=== PATIENT | male | born 1945 | race African-American/Black ===

== ENCOUNTER 2018-05-03 15:34 | Inpatient (IN) | payer MEDICARE ==
[~2018-05-03] VITALS: Ht 182.9 cm; Wt 76.4 kg
[~2018-05-03 15:34] MED LIST: IPRA3AMP29 IH; LEVO750T31 PO
[2018-05-03] MEDS ORDERED: fentaNYL PF VIAL 100 MCG/2 ML VIAL IV ONE (16:00)
[2018-05-03] MEDS ORDERED: IV NORMAL SALINE 1000ML BAG 1,000 ML IV ONE (16:00)
[2018-05-03] MEDS ORDERED: CONTRAST GIVEN. MC PRN (16:15)
[2018-05-03] MEDS ORDERED: IOHEXOL 300 MG/ML 100ML VIAL. IV ONE (16:15)
[2018-05-03 16:34] LABS: BASO % 0 % (0-3); EOS # 0.2 x10^3/uL (0.0-0.7); EOS % 2 % (0-3); HEMATOCRIT 49.5 % (39.0-53.0); HEMOGLOBIN 16.6 g/dL (13.0-17.5); LYMPH # 1.4 x10^3/uL (1.0-4.8); LYMPH % 19 % (24-48); MEAN CORPUSCULAR HEMOGLOBIN 33 pg (25-35); MEAN CORPUSCULAR HGB CONC 34 g/dL (31-37); MEAN CORPUSCULAR VOLUME 98 fL (79-100); MONO # 0.5 x10^3/uL (0.0-1.1); MONO % 6 % (0-9); NEUT # 5.3 x10^3uL (1.8-7.7); NEUT % 72 % (31-73); PLATELET COUNT 272 x10^3/uL (140-400); RED BLOOD COUNT 5.06 x10^6/uL (4.30-5.70); RED CELL DISTRIBUTION WIDTH 13.1 % (11.5-14.5); WHITE BLOOD COUNT 7.3 x10^3/uL (4.0-11.0)
[2018-05-03 16:47] LABS: CALCIUM 10.2 mg/dL (8.5-10.1); CREATININE 1.1 mg/dL (0.7-1.3); GFR 79.4; POTASSIUM 4.2 mmol/L (3.5-5.1)
[2018-05-03 16:53] LABS: ALBUMIN 3.8 g/dL (3.4-5.0); ALBUMIN/GLOBULIN RATIO 0.7 (1.0-1.7); TOTAL BILIRUBIN 0.5 mg/dL (0.2-1.0)
[2018-05-03] MEDS ORDERED: ONDANSETRON PF 4 MG/2 ML VIAL. ONE (16:55)
[2018-05-03] MEDS ORDERED: ONDANSETRON PF 4 MG/2 ML VIAL. IV ONE ×2 (17:00→19:00)
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
[2018-05-03] MEDS ORDERED: fentaNYL PF VIAL 100 MCG/2 ML VIAL IV PRN (19:00)
[2018-05-03] MEDS ORDERED: ONDANSETRON PF 4 MG/2 ML VIAL. IV PRN (19:00)
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
[2018-05-03] MEDS ORDERED: IV NORMAL SALINE 1000ML BAG 1,000 ML IV SCH (19:15)
[2018-05-03 19:53] VITALS: BP 157/91
[2018-05-03] MEDS: IPRATRPIUM/ALBUTEROL 0.5/2.5MG 3 ML NEBU. NEB SCH (21:08)
[2018-05-03] MEDS: IV NORMAL SALINE 1000ML BAG 1,000 ML IV SCH (21:33)
[2018-05-03 23:00] VITALS: BP 149/67
[2018-05-04] MEDS ORDERED: SIMETHICONE 80 MG TAB.CHEW PO SCH
[2018-05-04 03:00] VITALS: BP 122/73
[2018-05-04 05:29] LABS: BASO % 0 % (0-3); EOS % 0 % (0-3); HEMATOCRIT 44.4 % (39.0-53.0); HEMOGLOBIN 14.8 g/dL (13.0-17.5); LYMPH # 0.8 x10^3/uL (1.0-4.8); LYMPH % 11 % (24-48); MEAN CORPUSCULAR HEMOGLOBIN 32 pg (25-35); MEAN CORPUSCULAR HGB CONC 33 g/dL (31-37); MEAN CORPUSCULAR VOLUME 97 fL (79-100); MONO # 0.6 x10^3/uL (0.0-1.1); MONO % 8 % (0-9); NEUT # 6.1 x10^3uL (1.8-7.7); NEUT % 81 % (31-73); PLATELET COUNT 240 x10^3/uL (140-400); RED BLOOD COUNT 4.57 x10^6/uL (4.30-5.70); RED CELL DISTRIBUTION WIDTH 12.5 % (11.5-14.5); WHITE BLOOD COUNT 7.5 x10^3/uL (4.0-11.0)
[2018-05-04 05:48] LABS: CALCIUM 9.2 mg/dL (8.5-10.1); CREATININE 1.1 mg/dL (0.7-1.3); GFR 79.4
[2018-05-04] MEDS: IPRATRPIUM/ALBUTEROL 0.5/2.5MG 3 ML NEBU. NEB SCH ×4 (06:01→19:35)
[2018-05-04 07:00] VITALS: BP 103/65
[2018-05-04] MEDS: IV NORMAL SALINE 1000ML BAG 1,000 ML IV SCH ×2 (09:00→22:24)
[2018-05-04 11:00] VITALS: BP 121/55
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
--- NOTE | 2018-05-04 11:35 | PDOC2 ---
CONSULT Date of Consult Date of Consult DATE: 05/04/18 TIME: 11:32 Reason for Consult Reason for Consult: SBO Past Medical History Cardiovascular: HTN Pulmonary: COPD Endocrine: Diabetes Past Surgical History Past Surgical History: Cholecystectomy, Colectomy, Other (colostomy, reversal ) Family History Family History: Other (noncontributory to current illness ) Social History ALCOHOL: none Drugs: None Lives: Alone Current Problem List Problem List Problems Medical Problems: (1) SBO (small bowel obstruction) Status: Acute Current Medications Current Medications Current Medications Fentanyl Citrate (Fentanyl 2ml Vial) 25 mcg 1X ONCE IV Last administered on at 17:13; Start 05/03/18 at 16:00; Stop 05/03/18 at 16:01; Status DC Sodium Chloride 1,000 ml @ 1,000 mls/hr 1X ONCE IV Last administered on at 17:12; Start 05/03/18 at 16:00; Stop 05/03/18 at 16:59; Status DC Iohexol (Omnipaque 300 Mg/ml) 75 ml 1X ONCE IV Last administered on 05/03/18at 16:15; Start 05/03/18 at 16:15; Stop 05/03/18 at 16:16; Status DC Info (CONTRAST GIVEN -- Rx MONITORING) 1 each PRN DAILY PRN MC SEE COMMENTS; Start 05/03/18 at 16:15; Stop 05/05/18 at 16:14 Ondansetron HCl (Zofran) 4 mg STK-MED ONCE .ROUTE ; Start 05/03/18 at 16:55; Stop 05/03/18 at 16:57; Status DC Ondansetron HCl (Zofran) 4 mg 1X ONCE IV ; Start 05/03/18 at 17:00; Stop at 17:40; Status DC Ondansetron HCl (Zofran) 4 mg 1X ONCE IV Last administered on 05/03/18at 19:14 ; Start 05/03/18 at 19:00; Stop 05/03/18 at 19:01; Status DC Ondansetron HCl (Zofran) 4 mg PRN Q8HRS PRN IV NAUSEA/VOMITING; Start 05/03/18 at 19:00; Stop 05/04/18 at 18:59 Fentanyl Citrate (Fentanyl 2ml Vial) 25 mcg PRN Q2HR PRN IV PAIN; Start at 19:00; Stop 05/04/18 at 18:59 Sodium Chloride 1,000 ml @ 100 mls/hr Q10H IV ; Start 05/03/18 at 19:15 Albuterol/ Ipratropium (Duoneb) 3 ml RTQID NEB Last administered on 05/04/18at 06:01; Start 05/03/18 at 21:00 Sodium Chloride 1,000 ml @ 75 mls/hr [id number] IV Last administered on at 09:00; Start 05/03/18 at 21:00 Simethicone (Gas-X) 80 mg Q4HRS PO ; Start 05/04/18 at 00:00; Status Cancel Active Scripts Active Reported Duoneb 0.5-3(2.5) Mg/3 Ml (Albuterol/Ipratropium) 3 Ml Ampul.neb 3 Ml IH QID Allergies Allergies: Coded Allergies: Penicillins (Verified Allergy, Intermediate, Hives, 10/13/15) Vitals VITALS Vital Signs Date Time Temp Pulse Resp B/P (MAP) Pulse Ox O2 Delivery O2 Flow Rate FiO2 05/04/18 11:00 98.6 86 18 121/55 (77) 96 Room Air 98.6 Labs Labs Laboratory Tests Test 05/03/18 16:25 05/04/18 05:00 White Blood Count 7.3 x10^3/uL (4.0-11.0) 7.5 x10^3/uL (4.0-11.0) Red Blood Count 5.06 x10^6/uL (4.30-5.70) 4.57 x10^6/uL (4.30-5.70) Hemoglobin 16.6 g/dL (13.0-17.5) 14.8 g/dL (13.0-17.5) Hematocrit 49.5 % (39.0-53.0) 44.4 % (39.0-53.0) Mean Corpuscular Volume 98 fL (79-100) 97 fL (79-100) Mean Corpuscular Hemoglobin 33 pg (25-35) 32 pg (25-35) Mean Corpuscular Hemoglobin Concent 34 g/dL (31-37) 33 g/dL (31-37) Red Cell Distribution Width 13.1 % (11.5-14.5) 12.5 % (11.5-14.5) Platelet Count 272 x10^3/uL (140-400) 240 x10^3/uL (140-400) Neutrophils (%) (Auto) 72 % (31-73) 81 % (31-73) Lymphocytes (%) (Auto) 19 % (24-48) 11 % (24-48) Monocytes (%) (Auto) 6 % (0-9) 8 % (0-9) Eosinophils (%) (Auto) 2 % (0-3) 0 % (0-3) Basophils (%) (Auto) 0 % (0-3) 0 % (0-3) Neutrophils # (Auto) 5.3 x10^3uL (1.8-7.7) 6.1 x10^3uL (1.8-7.7) Lymphocytes # (Auto) 1.4 x10^3/uL (1.0-4.8) 0.8 x10^3/uL (1.0-4.8) Monocytes # (Auto) 0.5 x10^3/uL (0.0-1.1) 0.6 x10^3/uL (0.0-1.1) Eosinophils # (Auto) 0.2 x10^3/uL (0.0-0.7) 0.0 x10^3/uL (0.0-0.7) Basophils # (Auto) 0.0 x10^3/uL (0.0-0.2) 0.0 x10^3/uL (0.0-0.2) Sodium Level 139 mmol/L (136-145) 141 mmol/L (136-145) Potassium Level 4.2 mmol/L (3.5-5.1) 4.0 mmol/L (3.5-5.1) Chloride Level 101 mmol/L (98-107) 105 mmol/L (98-107) Carbon Dioxide Level 29 mmol/L (21-32) 27 mmol/L (21-32) Anion Gap 9 (6-14) 9 (6-14) Blood Urea Nitrogen 14 mg/dL (8-26) 18 mg/dL (8-26) Creatinine 1.1 mg/dL (0.7-1.3) 1.1 mg/dL (0.7-1.3) Estimated GFR (Cockcroft-Gault) 79.4 79.4 BUN/Creatinine Ratio 13 (6-20) Glucose Level 175 mg/dL (70-99) 144 mg/dL (70-99) Calcium Level 10.2 mg/dL (8.5-10.1) 9.2 mg/dL (8.5-10.1) Magnesium Level 2.0 mg/dL (1.8-2.4) Total Bilirubin 0.5 mg/dL (0.2-1.0) Aspartate Amino Transf (AST/SGOT) 30 U/L (15-37) Alanine Aminotransferase (ALT/SGPT) 23 U/L (16-63) Alkaline Phosphatase 88 U/L (46-116) Total Protein 9.0 g/dL (6.4-8.2) Albumin 3.8 g/dL (3.4-5.0) Albumin/Globulin Ratio 0.7 (1.0-1.7) Lipase 82 U/L (73-393) Laboratory Tests Test 05/03/18 16:25 05/04/18 05:00 White Blood Count 7.3 x10^3/uL (4.0-11.0) 7.5 x10^3/uL (4.0-11.0) Red Blood Count 5.06 x10^6/uL (4.30-5.70) 4.57 x10^6/uL (4.30-5.70) Hemoglobin 16.6 g/dL (13.0-17.5) 14.8 g/dL (13.0-17.5) Hematocrit 49.5 % (39.0-53.0) 44.4 % (39.0-53.0) Mean Corpuscular Volume 98 fL (79-100) 97 fL (79-100) Mean Corpuscular Hemoglobin 33 pg (25-35) 32 pg (25-35) Mean Corpuscular Hemoglobin Concent 34 g/dL (31-37) 33 g/dL (31-37) Red Cell Distribution Width 13.1 % (11.5-14.5) 12.5 % (11.5-14.5) Platelet Count 272 x10^3/uL (140-400) 240 x10^3/uL (140-400) Neutrophils (%) (Auto) 72 % (31-73) 81 % (31-73) Lymphocytes (%) (Auto) 19 % (24-48) 11 % (24-48) Monocytes (%) (Auto) 6 % (0-9) 8 % (0-9) Eosinophils (%) (Auto) 2 % (0-3) 0 % (0-3) Basophils (%) (Auto) 0 % (0-3) 0 % (0-3) Neutrophils # (Auto) 5.3 x10^3uL (1.8-7.7) 6.1 x10^3uL (1.8-7.7) Lymphocytes # (Auto) 1.4 x10^3/uL (1.0-4.8) 0.8 x10^3/uL (1.0-4.8) Monocytes # (Auto) 0.5 x10^3/uL (0.0-1.1) 0.6 x10^3/uL (0.0-1.1) Eosinophils # (Auto) 0.2 x10^3/uL (0.0-0.7) 0.0 x10^3/uL (0.0-0.7) Basophils # (Auto) 0.0 x10^3/uL (0.0-0.2) 0.0 x10^3/uL (0.0-0.2) Sodium Level 139 mmol/L (136-145) 141 mmol/L (136-145) Potassium Level 4.2 mmol/L (3.5-5.1) 4.0 mmol/L (3.5-5.1) Chloride Level 101 mmol/L (98-107) 105 mmol/L (98-107) Carbon Dioxide Level 29 mmol/L (21-32) 27 mmol/L (21-32) Anion Gap 9 (6-14) 9 (6-14) Blood Urea Nitrogen 14 mg/dL (8-26) 18 mg/dL (8-26) Creatinine 1.1 mg/dL (0.7-1.3) 1.1 mg/dL (0.7-1.3) Estimated GFR (Cockcroft-Gault) 79.4 79.4 BUN/Creatinine Ratio 13 (6-20) Glucose Level 175 mg/dL (70-99) 144 mg/dL (70-99) Calcium Level 10.2 mg/dL (8.5-10.1) 9.2 mg/dL (8.5-10.1) Magnesium Level 2.0 mg/dL (1.8-2.4) Total Bilirubin 0.5 mg/dL (0.2-1.0) Aspartate Amino Transf (AST/SGOT) 30 U/L (15-37) Alanine Aminotransferase (ALT/SGPT) 23 U/L (16-63) Alkaline Phosphatase 88 U/L (46-116) Total Protein 9.0 g/dL (6.4-8.2) Albumin 3.8 g/dL (3.4-5.0) Albumin/Globulin Ratio 0.7 (1.0-1.7) Lipase 82 U/L (73-393) Assessment/Plan Assessment/Plan SBo- with history of adhesions and prior surgery, adhesive disease leads differential. Malignancy/internal hernia, and/or volvulus possible as well. Plan gut rest/ng decompression serial kubs possible surgery consult and/or sb series if refractory to medical therapy Full note dictated EVELIN DIAZ MD May 04, 2018 11:35
[2018-05-04] MEDS ORDERED: IPRATRPIUM/ALBUTEROL 0.5/2.5MG 3 ML NEBU. IH SCH (13:00)
--- NOTE | 2018-05-04 14:42 | RAD ---
EXAM: ABDOMEN 2 VIEWS WITH PA CHEST History: Small bowel obstruction COMPARISON: 10/12/2015. FINDINGS: Feeding tube is identified in the abdomen with the tip projecting in the level of the distal stomach or proximal duodenum. There is no subdiaphragmatic free air. There is no bowel dilatation or evidence of obstruction. IMPRESSION: No acute abnormality identified. Electronically signed by: Jorge Oshea MD (05/04/2018 2:38 PM) [facility]
[2018-05-04 15:00] VITALS: BP 120/60
[2018-05-04 19:00] VITALS: BP 135/69
[2018-05-04 23:00] VITALS: BP 126/74
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
[2018-05-05 03:00] VITALS: BP 103/58
[2018-05-05 07:00] VITALS: BP 123/78
[2018-05-05] MEDS: IPRATRPIUM/ALBUTEROL 0.5/2.5MG 3 ML NEBU. NEB SCH ×4 (07:33→19:12)
--- NOTE | 2018-05-05 09:57 | RAD ---
Single view of the abdomen 05/05/2018 INDICATION: Small bowel obstruction. COMPARISON STUDY: Abdominal Series , yesterday. Discussion: There is an enteric tube with tip likely in the distal stomach versus proximal most duodenum. No gross pneumoperitoneum is identified below exam is limited for this purpose. The bowel gas pattern is nonspecific, without evidence of obstruction. Mild paucity of central bowel gas is seen. Surgical clips noted in the right upper abdomen. Sutures noted in the midline. Degenerative changes of the spine are seen. Hypertrophic, likely post traumatic changes of the pubic symphysis are seen. An acute change from prior exam is not identified. IMPRESSION: No radiographic evidence of acute intra-abdominal abnormality or acute change from comparison study Electronically signed by: Alexandro Sena MD (05/05/2018 9:54 AM) [id number]
[2018-05-05 11:00] VITALS: BP 131/74
--- NOTE | 2018-05-05 11:10 | PDOC ---
Subjective: Subjective: Has been walking the halls all morning. Denies abd pain, denies nausea. NGT uncomfortable - says clamped this morning. A little annoyed - says he has "clear drainage from COPD." Denies flatus. Objective: Objective: 1600 out of NG per I&O Vital Signs: Vital Signs Date Time Temp Pulse Resp B/P (MAP) Pulse Ox O2 Delivery O2 Flow Rate FiO2 05/05/18 07:34 92 Room Air 05/05/18 07:00 98.8 102 16 123/78 (93) 98.8 Imaging: KUB 05/05/18 IMPRESSION: No radiographic evidence of acute intra-abdominal abnormality or acute change from comparison study. PE: GEN: NAD, walking around room HEENT: NGT clamped LUNGS: diminished HEART: tachycardic ABD: maybe a few quiet bowel sounds, non-tender NEURO/PSYCH: A & O 3 A/P: SBO -- Had significant NG output with symptom improvement, now clamped - monitor. CLAY KUMAR May 05, 2018 11:10
[2018-05-05] MEDS: IV NORMAL SALINE 1000ML BAG 1,000 ML IV SCH (11:58)
[2018-05-05 15:30] VITALS: BP 115/70
--- NOTE | 2018-05-05 16:15 | PDOC ---
PROGRESS NOTES Chief Complaint Chief Complaint Hx Multiple abd surgies acute abdominal pain Recurrent SBO, partial, improved with therapy started yesterday History of Present Illness History of Present Illness NG tube put out about 900 mls yesterady, then slowed, pain better, then clamped , will remove NG tube today if pain is better, and XRay looks OK will start clear in AM, cont IV fluid Vitals Vitals Vital Signs Date Time Temp Pulse Resp B/P (MAP) Pulse Ox O2 Delivery O2 Flow Rate FiO2 05/05/18 15:30 97.8 95 16 115/70 (85) 96 Room Air 97.8 Physical Exam General: Alert, Oriented X3, Cooperative, No acute distress Heart: Regular rate, Normal S1, Normal S2, No murmurs Lungs: Clear Abdomen: Soft, Other (ND, NTTP) Extremities: No clubbing, No cyanosis Skin: No rashes, No breakdown Assessment and Plan Assessmemt and Plan Problems Medical Problems: (1) SBO (small bowel obstruction) Status: Acute Comment Review of Relevant I have reviewed the following items jevon (where applicable) has been applied. Labs Laboratory Tests Test 05/03/18 16:25 05/04/18 05:00 White Blood Count 7.3 x10^3/uL (4.0-11.0) 7.5 x10^3/uL (4.0-11.0) Red Blood Count 5.06 x10^6/uL (4.30-5.70) 4.57 x10^6/uL (4.30-5.70) Hemoglobin 16.6 g/dL (13.0-17.5) 14.8 g/dL (13.0-17.5) Hematocrit 49.5 % (39.0-53.0) 44.4 % (39.0-53.0) Mean Corpuscular Volume 98 fL (79-100) 97 fL (79-100) Mean Corpuscular Hemoglobin 33 pg (25-35) 32 pg (25-35) Mean Corpuscular Hemoglobin Concent 34 g/dL (31-37) 33 g/dL (31-37) Red Cell Distribution Width 13.1 % (11.5-14.5) 12.5 % (11.5-14.5) Platelet Count 272 x10^3/uL (140-400) 240 x10^3/uL (140-400) Neutrophils (%) (Auto) 72 % (31-73) 81 % (31-73) Lymphocytes (%) (Auto) 19 % (24-48) 11 % (24-48) Monocytes (%) (Auto) 6 % (0-9) 8 % (0-9) Eosinophils (%) (Auto) 2 % (0-3) 0 % (0-3) Basophils (%) (Auto) 0 % (0-3) 0 % (0-3) Neutrophils # (Auto) 5.3 x10^3uL (1.8-7.7) 6.1 x10^3uL (1.8-7.7) Lymphocytes # (Auto) 1.4 x10^3/uL (1.0-4.8) 0.8 x10^3/uL (1.0-4.8) Monocytes # (Auto) 0.5 x10^3/uL (0.0-1.1) 0.6 x10^3/uL (0.0-1.1) Eosinophils # (Auto) 0.2 x10^3/uL (0.0-0.7) 0.0 x10^3/uL (0.0-0.7) Basophils # (Auto) 0.0 x10^3/uL (0.0-0.2) 0.0 x10^3/uL (0.0-0.2) Sodium Level 139 mmol/L (136-145) 141 mmol/L (136-145) Potassium Level 4.2 mmol/L (3.5-5.1) 4.0 mmol/L (3.5-5.1) Chloride Level 101 mmol/L (98-107) 105 mmol/L (98-107) Carbon Dioxide Level 29 mmol/L (21-32) 27 mmol/L (21-32) Anion Gap 9 (6-14) 9 (6-14) Blood Urea Nitrogen 14 mg/dL (8-26) 18 mg/dL (8-26) Creatinine 1.1 mg/dL (0.7-1.3) 1.1 mg/dL (0.7-1.3) Estimated GFR (Cockcroft-Gault) 79.4 79.4 BUN/Creatinine Ratio 13 (6-20) Glucose Level 175 mg/dL (70-99) 144 mg/dL (70-99) Calcium Level 10.2 mg/dL (8.5-10.1) 9.2 mg/dL (8.5-10.1) Magnesium Level 2.0 mg/dL (1.8-2.4) Total Bilirubin 0.5 mg/dL (0.2-1.0) Aspartate Amino Transf (AST/SGOT) 30 U/L (15-37) Alanine Aminotransferase (ALT/SGPT) 23 U/L (16-63) Alkaline Phosphatase 88 U/L (46-116) Total Protein 9.0 g/dL (6.4-8.2) Albumin 3.8 g/dL (3.4-5.0) Albumin/Globulin Ratio 0.7 (1.0-1.7) Lipase 82 U/L (73-393) Medications Current Medications Fentanyl Citrate (Fentanyl 2ml Vial) 25 mcg 1X ONCE IV Last administered on at 17:13; Start 05/03/18 at 16:00; Stop 05/03/18 at 16:01; Status DC Sodium Chloride 1,000 ml @ 1,000 mls/hr 1X ONCE IV Last administered on at 17:12; Start 05/03/18 at 16:00; Stop 05/03/18 at 16:59; Status DC Iohexol (Omnipaque 300 Mg/ml) 75 ml 1X ONCE IV Last administered on 05/03/18at 16:15; Start 05/03/18 at 16:15; Stop 05/03/18 at 16:16; Status DC Info (CONTRAST GIVEN -- Rx MONITORING) 1 each PRN DAILY PRN MC SEE COMMENTS; Start 05/03/18 at 16:15; Stop 05/05/18 at 16:14 Ondansetron HCl (Zofran) 4 mg STK-MED ONCE .ROUTE ; Start 05/03/18 at 16:55; Stop 05/03/18 at 16:57; Status DC Ondansetron HCl (Zofran) 4 mg 1X ONCE IV ; Start 05/03/18 at 17:00; Stop at 17:40; Status DC Ondansetron HCl (Zofran) 4 mg 1X ONCE IV Last administered on 05/03/18at 19:14 ; Start 05/03/18 at 19:00; Stop 05/03/18 at 19:01; Status DC Ondansetron HCl (Zofran) 4 mg PRN Q8HRS PRN IV NAUSEA/VOMITING; Start 05/03/18 at 19:00; Stop 05/04/18 at 18:59; Status DC Fentanyl Citrate (Fentanyl 2ml Vial) 25 mcg PRN Q2HR PRN IV PAIN; Start at 19:00; Stop 05/04/18 at 18:59; Status DC Sodium Chloride 1,000 ml @ 100 mls/hr Q10H IV ; Start 05/03/18 at 19:15 Albuterol/ Ipratropium (Duoneb) 3 ml RTQID NEB Last administered on 05/05/18at 07:33; Start 05/03/18 at 21:00 Sodium Chloride 1,000 ml @ 75 mls/hr [id number] IV Last administered on at 11:58; Start 05/03/18 at 21:00 Simethicone (Gas-X) 80 mg Q4HRS PO ; Start 05/04/18 at 00:00; Status Cancel Albuterol/ Ipratropium (Duoneb) 3 ml QID IH ; Start 05/04/18 at 13:00; Status UNV Active Scripts Active Reported Duoneb 0.5-3(2.5) Mg/3 Ml (Albuterol/Ipratropium) 3 Ml Ampul.neb 3 Ml IH QID Vitals/I & O Vital Sign - Last 24 Hours 05/04/18 05/04/18 05/04/18 05/04/18 19:00 19:36 20:00 23:00 Temp 98.5 98.5 98.5 98.5 Pulse 44 80 Resp 18 18 B/P (MAP) 135/69 (91) 126/74 (91) Pulse Ox 92 93 O2 Delivery Room Air Room Air Room Air Room Air 05/05/18 05/05/18 05/05/18 05/05/18 03:00 07:00 07:20 07:34 Temp 97.8 98.8 97.8 98.8 Pulse 94 102 Resp 18 16 B/P (MAP) 103/58 (73) 123/78 (93) Pulse Ox 95 100 92 O2 Delivery Room Air Room Air Room Air Room Air 05/05/18 05/05/18 05/05/18 11:00 11:32 15:30 Temp 96.9 97.8 96.9 97.8 Pulse 88 95 Resp 16 16 B/P (MAP) 131/74 (93) 115/70 (85) Pulse Ox 96 96 96 O2 Delivery Room Air Room Air Room Air Intake and Output 05/04/18 05/04/18 05/05/18 15:00 23:00 07:00 Intake Total 0 ml 0 ml Output Total 3000 ml Balance -3000 ml 0 ml EULOGIO BAILEY MD May 05, 2018 16:15
[2018-05-05 19:00] VITALS: BP 131/65
[2018-05-05 23:00] VITALS: BP 112/65
[2018-05-06] MEDS: IV NORMAL SALINE 1000ML BAG 1,000 ML IV SCH ×2 (00:04→15:40)
[2018-05-06 03:00] VITALS: BP 98/49
[2018-05-06] MEDS: IPRATRPIUM/ALBUTEROL 0.5/2.5MG 3 ML NEBU. NEB SCH ×3 (06:53→14:44)
[2018-05-06 07:00] VITALS: BP 118/55
--- NOTE | 2018-05-06 10:30 | PDOC3 ---
Discharge Summary Visit Information Date of Admission: May 03, 2018 Date of Discharge: May 06, 2018 Admitting Diagnosis: aute abd pain Final Diagnosis Hx Multiple abd surgies acute abdominal pain Recurrent SBO, partial, improved with therapy started yesterday Problems Medical Problems: (1) SBO (small bowel obstruction) Status: Acute Brief Hospital Course Allergies Allergies Coded Allergies Type Severity Reaction Last Updated Verified Penicillins Allergy Intermediate Hives 10/13/15 Yes Vital Signs Vital Signs Date Time Temp Pulse Resp B/P (MAP) Pulse Ox O2 Delivery O2 Flow Rate FiO2 05/06/18 07:20 Room Air 05/06/18 07:00 95 05/06/18 07:00 98.5 95 18 118/55 (76) 98.5 Brief Hospital Course Mr. Bro is a 72 old male, admit with SBO, acute episode prior known NG tube put out about 900 mls then slowed, pain better, then clamped, then diet advanced one day pain is better, Discharge Information Condition at Discharge: Improved Follow Up: Weeks Disposition/Orders: D/C to Home Scheduled Ipratropium/Albuterol Sulfate (Duoneb 0.5-3(2.5) Mg/3 Ml) 3 Ml Ampul.neb, 3 ML IH QID, (Reported) Entered as Reported by: RICHARD GUTIERREZ on 05/10/14 0157 Last Action: Continued on 05/04/18 1236 by MISTI LEWIS MD Patient Instructions Patient Instructions face to face eval, discussed with him EULOGIO Sandoval MD May 06, 2018 10:30
[2018-05-06 11:00] VITALS: BP 120/50
--- NOTE | 2018-05-06 11:40 | PDOC ---
Subjective: Subjective: Feels much better. Tolerating PO w/o n/v or abd pain. Says stooled - describes formed and liquid. Objective: Objective: D/w RN - DC today. Vital Signs: Vital Signs Date Time Temp Pulse Resp B/P (MAP) Pulse Ox O2 Delivery O2 Flow Rate FiO2 05/06/18 11:00 98.2 98 18 120/50 (73) 97 Room Air 98.2 PE: GEN: NAD, up to chair watching tv LUNGS: CTAB HEART: RRR ABD: NABS, S/ND/NT NEURO/PSYCH: A & O 3 A/P: SBO - resolved -- Tolerating PO w/o issue. DC per primary. CLAY KUMAR May 06, 2018 11:40
--- NOTE | 2018-05-06 11:41 | PDOC ---
SURGICAL PROGRESS NOTE Subjective up to chair feels well tolerating liquids hopes to go home later today Vital Signs Vital Signs Date Time Temp Pulse Resp B/P (MAP) Pulse Ox O2 Delivery O2 Flow Rate FiO2 05/06/18 11:00 98.2 98 18 120/50 (73) 97 Room Air 98.2 I&O Intake and Output 05/06/18 07:00 Intake Total 2300 ml Output Total 700 ml Balance 1600 ml Intake Oral 300 ml IV Total 2000 ml Output Urine Total 700 ml # Voids 3 PATIENT HAS A STOLL: No General: Alert, Cooperative, No acute distress Abdomen: Soft Problem List Problems Medical Problems: (1) SBO (small bowel obstruction) Status: Acute Assessment/Plan SBO, resolving advance diet as tolerated OK for dismissal from surgery standpoint TRACY ABDI MD May 06, 2018 11:41
[2018-05-06 15:00] VITALS: BP 126/50
== END 2018-05-06 18:10 | disposition home or self-care (01) | DRG 388 ==
LOC: ER 15:34 → 4 NORTH 18:34
PROVIDERS: ADMIT Hospitalist; ATTEND Hospitalist
PROC: 0D9670Z Drainage of Stomach with Drainage Device, Via Natural or Artificial Opening (ICD-10-PCS; principal; 2018-05-03)
DX: K56.600 Partial intestinal obstruction, unspecified as to cause (principal); R65.11 Systemic inflammatory response syndrome (SIRS) of non-infectious origin with acute organ dysfunction; E11.9 Type 2 diabetes mellitus without complications; F17.200 Nicotine dependence, unspecified, uncomplicated; I10 Essential (primary) hypertension; J44.9 Chronic obstructive pulmonary disease, unspecified; Z93.3 Colostomy status; Z79.899 Other long term (current) drug therapy; Z88.0 Allergy status to penicillin; Z90.49 Acquired absence of other specified parts of digestive tract
CPT/HCPCS: 36415; 74018; 74022; 74177; 80048; 80053; 83690; 83735; 85025; 94640; 94760; 96374; J2405; J3010; J7030; J7620; Q9967; 99285-25

== ENCOUNTER → 2018-09-10 | Outpatient (CLI) | payer MEDICARE ==
[~2018-09-10] MED LIST changes: +ALBUTEROL SULFATE 2.5 MG/3 ML NEBU. NEB ONE
--- NOTE | 2018-09-11 11:16 | RESP ---
DATE OF SERVICE: 09/10/2018 ATTENDING PHYSICIAN: Dr. Hess. The patient's FVC was 1.9, which is 55% predicted, FEV1 of 1.09, which is 41% predicted. The FEV1/FVC ratio was reduced. There was an excellent response to bronchodilators with 25% improvement in FVC and 26% improvement in FEV1. Total lung capacity could not be performed. The patient's vital capacity was 55% predicted. Diffusion capacity was 106% predicted. IMPRESSION: 1. Moderate to severe obstructive airway disease with an excellent response to bronchodilators suggesting a component of reactive airway disease as well. 2. Normal diffusion capacity. 3. Lung volumes could not be performed. BRENNON RODRIGUEZ MD DR: BEKA/coni JOB#: [id number] / [id number]
== END | disposition home or self-care (01) ==
LOC: PF 09:51
DX: J44.9 Chronic obstructive pulmonary disease, unspecified (principal); I10 Essential (primary) hypertension; Z87.891 Personal history of nicotine dependence
CPT/HCPCS: 94060; 94640; 94729; J7613